=== PATIENT | female | born 1950 | race Caucasian/White ===

== ENCOUNTER 2017-10-08 12:34 | Observation (INO) | payer MEDICARE, OTHER ==
[2017-10-08] MEDS ORDERED: Sodium Chloride 0.9% 10 ML Syringe FLUSH PRN (12:52)
[2017-10-08] MEDS ORDERED: Ondansetron 4 MG/2 ML SDV IVPUSH ONE (12:55)
[2017-10-08] MEDS ORDERED: Lactated Ringers 1,000 ML IV SCH (13:00)
[2017-10-08 13:26] LABS: CHLORIDE,CL 90 mmol/L (98-107)
[2017-10-08 13:29] LABS: ANION GAP 10.2 mmol/L (10-20); SODIUM,NA 128 mmol/L (136-145)
[2017-10-08] MEDS ORDERED: Sodium Chloride 0.9% 1,000 ML IV SCH (13:30)
--- NOTE | 2017-10-08 13:52 | EDM.PDOC ---
ED HPI GENERAL MEDICAL PROBLEM - General Stated Complaint: NAUSEOUS Time Seen by Provider: 10/08/17 12:40 Source of Information: Reports: Patient History Limitations: Reports: No Limitations - History of Present Illness INITIAL COMMENTS - FREE TEXT/NARRATIVE: Pt. persents to ER with complaints of nausea and vomiting. Underwent total knee replacement on Wednesday and was discharged yesterday. She has not had a BM for 4 days. No fever or chills. No weakness. No chest pain or shortness of breath. States that the vomit is not fetid. Denies any abdominal pain. States that she feels "bloated". Location: Reports: Abdomen - Related Data Allergies Allergy/AdvReac Type Severity Reaction Status Date / Time colchicine Allergy Other Verified 10/08/17 15:49 Penicillins Allergy Rash Verified 10/08/17 15:45 CT dye Allergy Shortness Uncoded 10/08/17 15:45 of Breath Home Meds: Home Meds Acetaminophen [Tylenol Arthritis] 650 mg PO Q6H PRN 10/08/17 [History] Gabapentin [Neurontin] 600 mg PO BEDTIME 10/08/17 [History] Lactobacillus Acidophilus [Probiotic] 1 each PO BEDTIME 10/08/17 [History] Lisinopril/Hydrochlorothiazide [Lisinopril-Hctz 20-25 mg Tab] 1 each PO DAILY [History] Menthol [Biofreeze] 5 ml TP Q6H PRN 10/08/17 [History] Polyethylene Glycol 3350 [MiraLAX] 17 gm PO BID 10/08/17 [History] Rivaroxaban [Xarelto] 20 mg PO DAILY 10/08/17 [History] Sotalol HCl [Betapace] 120 mg PO BID 10/08/17 [History] amLODIPine Besylate [Norvasc] 5 mg PO DAILY 10/08/17 [History] traMADol HCl [Ultram] 50 mg PO 10/08/17 [History] ED ROS GENERAL - Review of Systems Review Of Systems: See Below Constitutional: Reports: No Symptoms HEENT: Reports: No Symptoms Respiratory: Reports: No Symptoms Cardiovascular: Reports: No Symptoms Endocrine: Reports: No Symptoms GI/Abdominal: Reports: Nausea, Vomiting : Reports: No Symptoms Musculoskeletal: Reports: No Symptoms Skin: Reports: No Symptoms Neurological: Reports: No Symptoms Psychiatric: Reports: No Symptoms Hematologic/Lymphatic: Reports: No Symptoms Immunologic: Reports: No Symptoms ED EXAM, GENERAL - Physical Exam Exam: See Below General Appearance: Alert, WD/WN, No Apparent Distress Throat/Mouth: Normal Inspection, Normal Lips, Normal Teeth, Normal Gums, Normal Oropharynx, Normal Voice, No Airway Compromise Respiratory/Chest: No Respiratory Distress, Lungs Clear, Normal Breath Sounds, No Accessory Muscle Use, Chest Non-Tender Cardiovascular: Normal Peripheral Pulses, Regular Rate, Rhythm, No Edema, No Gallop, No JVD, No Murmur, No Rub Peripheral Pulses: 3+: Radial (R) GI/Abdominal: No Organomegaly, No Distention, No Mass, Abnormal Bowel Sounds (Female) Exam: Deferred Rectal (Female) Exam: Deferred Back Exam: Normal Inspection, Full Range of Motion, NT Extremities: Normal Inspection, Normal Range of Motion, Non-Tender, Normal Capillary Refill, No Pedal Edema Neurological: Alert, Oriented, CN II-XII Intact, Normal Cognition, Normal Gait, Normal Reflexes, No Motor/Sensory Deficits Psychiatric: Normal Affect, Normal Mood Skin Exam: Warm, Dry, Intact, Normal Color, No Rash Course - Vital Signs Last Recorded V/S: Last Vital Signs Temp 36.9 C 10/08/17 15:20 Pulse 82 10/08/17 15:20 Resp 16 10/08/17 15:20 BP 117/83 10/08/17 15:20 Pulse Ox 97 10/08/17 15:20 - Orders/Labs/Meds Orders: Active Orders 24 hr Category Date Time Status Abdomen Pelvis wo Cont [CT] Stat Exams 10/08/17 14:00 Taken Abdomen Series w Chest 1V [CR] Stat Exams 10/08/17 12:52 Taken UA W/MICROSCOPIC [URIN] Stat Lab 10/08/17 12:54 Ordered Sodium Chloride 0.9% [Normal Saline] 1,000 ml Med 10/08/17 14:53 Active IV .BOLUS Sodium Chloride 0.9% [Normal Saline] 1,000 ml Med 10/08/17 13:30 Active IV ASDIRECTED Sodium Chloride 0.9% [Saline Flush] Med 10/08/17 12:52 Active 10 ml FLUSH ASDIRECTED PRN Peripheral IV Insertion Adult [OM.PC] Routine Oth 10/08/17 12:53 Ordered Medication Orders Sodium Chloride (Normal Saline) 1,000 mls @ 1,000 mls/hr IV ASDIRECTED CORINNA Last Admin: 10/08/17 13:40 Dose: 1,000 mls/hr Sodium Chloride (Normal Saline) 1,000 mls @ 100 mls/hr IV .BOLUS ONE Stop: 10/09/17 00:52 Potassium Chloride/Sodium Chloride (Normal Saline With 20 Meq Kcl) 1,000 mls @ 100 mls/hr IV ASDIRECTED CORINNA Sodium Chloride (Saline Flush) 10 ml FLUSH ASDIRECTED PRN PRN Reason: Keep Vein Open Labs: Laboratory Tests 10/08/17 10/08/17 10/08/17 Range/Units 12:58 12:58 12:58 WBC 16.5 H (4.0-10.0) x10^3/uL RBC 3.21 L (4.00-5.50) x10^6/uL Hgb 9.5 L (12.0-16.0) g/dL Hct 27.8 L (33.0-47.0) % MCV 86.6 (78.0-93.0) fL MCH 29.6 (26.0-32.0) pg MCHC 34.2 (32.0-36.0) g/dL RDW Coeff of Alyce 12.2 (10.0-15.0) % Plt Count 181 (130-400) x10^3/uL Neut % (Auto) 83.7 H (50.0-80.0) % Lymph % (Auto) 6.9 L (25.0-50.0) % [place] % (Auto) 8.8 (2.0-11.0) % Eos % (Auto) 0.5 (0.0-4.0) % Baso % (Auto) 0.1 L (0.2-1.2) % PT 10.9 (9.6-11.4) SEC INR 1.0 L (2.0-3.5) Sodium 128 L* (136-145) mmol/L Potassium 3.2 L (3.5-5.1) mmol/L Chloride 90 L (98-107) mmol/L Carbon Dioxide 31 (21-32) mmol/L Anion Gap 10.2 (10-20) mmol/L BUN 10 (7-18) mg/dL Creatinine 0.5 L (0.55-1.02) mg/dL Est Cr Clr Drug Dosing TNP Estimated GFR (MDRD) > 60 Glucose 118 H (74-106) mg/dL Calcium 8.5 (8.5-10.1) mg/dL Corrected Calcium 9.46 (8.5-10.1) mg/dL Total Bilirubin 1.4 H (0.2-1.0) mg/dL AST 16 (15-37) U/L ALT 19 (14-59) U/L Alkaline Phosphatase 74 (46-116) U/L C-Reactive Protein 32.9 H (<=0.9) mg/dL Total Protein 6.5 (6.4-8.2) g/dL Albumin 2.8 L (3.4-5.0) g/dL Globulin 3.7 Albumin/Globulin Ratio 0.76 Amylase 24 L (25-115) U/L Lipase 76 (73-393) U/L Meds: Medications Generic Name Dose Route Start Last Admin Trade Name Freq PRN Reason Stop Dose Admin Sodium Chloride 1,000 mls @ 1,000 mls/hr 10/08/17 13:30 10/08/17 13:40 Normal Saline IV 1,000 mls/hr ASDIRECTED CORINNA Administration Sodium Chloride 1,000 mls @ 100 mls/hr 10/08/17 14:53 Normal Saline IV 10/09/17 00:52 .BOLUS ONE Potassium Chloride/Sodium Chloride 1,000 mls @ 100 mls/hr 10/08/17 15:30 Normal Saline With 20 Meq Kcl IV ASDIRECTED CORINNA Sodium Chloride 10 ml 10/08/17 12:52 Saline Flush FLUSH ASDIRECTED PRN Keep Vein Open Discontinued Medications Generic Name Dose Route Start Last Admin Trade Name Freq PRN Reason Stop Dose Admin Lactated Ringer's 1,000 mls @ 500 mls/hr 10/08/17 13:00 10/08/17 12:40 Ringers, Lactated IV 500 mls/hr ASDIRECTED CORINAN Administration Iopamidol 100 ml 10/08/17 14:12 Isovue-300 (61%) IVPUSH 10/08/17 14:13 ONETIME ONE Ondansetron HCl 4 mg 10/08/17 12:55 10/08/17 12:55 Zofran IVPUSH 10/08/17 12:56 4 mg ONETIME ONE Administration - Radiology Interpretation Free Text/Narrative:: CT abdomen and pelvis was obtained without contrast. No obvious pathology noted. Plain film x-rays of abd. f/u obtained and showed scattered air in abd. consistent with ileus. Departure - Departure Time of Disposition: 16:05 Disposition: Refer to Observation Clinical Impression: Ileus, Hyponatremia - Discharge Information - Problem List Review Problem List Initiated/Reviewed/Updated: Yes - My Orders Last 24 Hours: My Active Orders 10/08/17 12:52 Abdomen Series w Chest 1V [CR] Stat Sodium Chloride 0.9% [Saline Flush] 10 ml FLUSH ASDIRECTED PRN 10/08/17 12:53 Peripheral IV Insertion Adult [OM.PC] Routine 10/08/17 12:54 UA W/MICROSCOPIC [URIN] Stat 10/08/17 13:30 Sodium Chloride 0.9% [Normal Saline] 1,000 ml IV ASDIRECTED 10/08/17 14:00 Abdomen Pelvis wo Cont [CT] Stat 10/08/17 14:53 Sodium Chloride 0.9% [Normal Saline] 1,000 ml IV .BOLUS - Assessment/Plan Last 24 Hours: My Active Orders 10/08/17 12:52 Abdomen Series w Chest 1V [CR] Stat Sodium Chloride 0.9% [Saline Flush] 10 ml FLUSH ASDIRECTED PRN 10/08/17 12:53 Peripheral IV Insertion Adult [OM.PC] Routine 10/08/17 12:54 UA W/MICROSCOPIC [URIN] Stat 10/08/17 13:30 Sodium Chloride 0.9% [Normal Saline] 1,000 ml IV ASDIRECTED 10/08/17 14:00 Abdomen Pelvis wo Cont [CT] Stat 10/08/17 14:53 Sodium Chloride 0.9% [Normal Saline] 1,000 ml IV .BOLUS Plan: admit observation. She was given 1 liter of NS in ER and 4 mg of zofran IV and states she felt much improved. Will admit and kept NPO. Reglan to help with nausea/peristalsis. IV NS with 20KCL at 100ml/hr. Reevaluate in AM. and anticipate discharge if continuing to improve.
[2017-10-08] MEDS ORDERED: Iopamidol 612 MG/ML 100 ML Bottle IVPUSH ONE (14:12)
[2017-10-08] MEDS ORDERED: Sodium Chloride 0.9% 1,000 ML IV ONE (14:53)
[2017-10-08] MEDS ORDERED: NS + KCl 20mEq/L 1,000 ML IV SCH (15:30)
[2017-10-08] MEDS: Metoclopramide 10 MG/2 ML SDV IVPUSH SCH ×2 (16:33→22:19)
[2017-10-08] MEDS: traMADol 50 MG Tab PO PRN (18:04)
[2017-10-08] MEDS ORDERED: Gabapentin 300 MG Cap PO SCH (20:00)
[2017-10-08] MEDS ORDERED: Lactobacillus Rhamnosus GG (Probiotic) Cap PO SCH (20:00)
[2017-10-08] MEDS: Sotalol 80 MG Tab PO SCH (21:10)
[2017-10-08] MEDS: Acetaminophen 650 MG Tab.ER PO PRN (21:14)
--- NOTE | 2017-10-09 00:59 | PCM.PN ---
- General Info Date of Service: 10/09/17 Admission Dx/Problem (Free Text): pt was admitted for observation of pain. Pt was just discharged from the hospital post left knee replacement. Pt states she did not have a bowel movement prior to discharge and was experiencing a moderate amount of pain. Her symptoms only progressed at home resulting in an emergency room visit for pain and bloating. X-rays and labs were completed. Results showed that the patient had an elevated white count it's unknown if this is related to surgical intervention or a new onset of a possible infection. Her x-ray also showed moderate amount of gas. He was admitted observation hydration and bowel rest. At approximately 2100 patient was allowed to try clear liquids/broth. Patient tolerated well without any complicated. She denies any fever, nauseated, bloating, or abdominal pain. Pt has been up ambulating in the [place] and feels her pain is under control with the current medication regiment. Functional Status: Reports: Pain Controlled, Urinating - Review of Systems General: Reports: No Symptoms HEENT: Reports: No Symptoms Pulmonary: Reports: No Symptoms Cardiovascular: Reports: No Symptoms Gastrointestinal: Reports: Abdominal Pain, Flatus Genitourinary: Reports: No Symptoms Musculoskeletal: Reports: No Symptoms Skin: Reports: Other (left knee pain ) Neurological: Reports: No Symptoms Psychiatric: Reports: No Symptoms - Patient Data Vitals - Most Recent: Last Vital Signs Temp 37.2 C 10/08/17 21:59 Pulse 87 10/08/17 21:59 Resp 19 10/08/17 21:59 BP 113/55 L 10/08/17 21:10 Pulse Ox 93 L 10/08/17 21:59 Weight - Most Recent: 97.522 kg I&O - Last 24 Hours: Intake & Output 10/08/17 10/08/17 10/09/17 14:59 22:59 06:59 Intake Total 2630 Output Total 2600 Balance 30 Lab Results Last 24 Hours: Laboratory Results - last 24 hr 10/08/17 10/08/17 10/08/17 Range/Units 12:58 12:58 12:58 WBC 16.5 H (4.0-10.0) x10^3/uL RBC 3.21 L (4.00-5.50) x10^6/uL Hgb 9.5 L (12.0-16.0) g/dL Hct 27.8 L (33.0-47.0) % MCV 86.6 (78.0-93.0) fL MCH 29.6 (26.0-32.0) pg MCHC 34.2 (32.0-36.0) g/dL RDW Coeff of Alyce 12.2 (10.0-15.0) % Plt Count 181 (130-400) x10^3/uL Neut % (Auto) 83.7 H (50.0-80.0) % Lymph % (Auto) 6.9 L (25.0-50.0) % [place] % (Auto) 8.8 (2.0-11.0) % Eos % (Auto) 0.5 (0.0-4.0) % Baso % (Auto) 0.1 L (0.2-1.2) % PT 10.9 (9.6-11.4) SEC INR 1.0 L (2.0-3.5) Sodium 128 L* (136-145) mmol/L Potassium 3.2 L (3.5-5.1) mmol/L Chloride 90 L (98-107) mmol/L Carbon Dioxide 31 (21-32) mmol/L Anion Gap 10.2 (10-20) mmol/L BUN 10 (7-18) mg/dL Creatinine 0.5 L (0.55-1.02) mg/dL Est Cr Clr Drug Dosing TNP Estimated GFR (MDRD) > 60 Glucose 118 H (74-106) mg/dL Calcium 8.5 (8.5-10.1) mg/dL Corrected Calcium 9.46 (8.5-10.1) mg/dL Total Bilirubin 1.4 H (0.2-1.0) mg/dL AST 16 (15-37) U/L ALT 19 (14-59) U/L Alkaline Phosphatase 74 (46-116) U/L C-Reactive Protein 32.9 H (<=0.9) mg/dL Total Protein 6.5 (6.4-8.2) g/dL Albumin 2.8 L (3.4-5.0) g/dL Globulin 3.7 Albumin/Globulin Ratio 0.76 Amylase 24 L (25-115) U/L Lipase 76 (73-393) U/L Urine Color (YELLOW) Urine Appearance (CLEAR) Urine pH (5.0-8.0) Ur Specific [place] Urine Protein (NEGATIVE) mg/dL Urine Glucose (UA) (NEGATIVE) mg/dL Urine Ketones (NEGATIVE) mg/dL Urine Occult Blood (NEGATIVE) Urine Nitrite (NEGATIVE) Urine Bilirubin (NEGATIVE) Urine Urobilinogen (0.2) EU/dL Ur Leukocyte Esterase (NEGATIVE) Urine RBC (NOT SEEN) /HPF Urine WBC (NOT SEEN) /HPF Ur Squamous Epith Cells (NEGATIVE) /HPF Urine Bacteria (NEGATIVE) /HPF Urine Mucus (NEGATIVE) /LPF 10/08/17 Range/Units 16:05 WBC (4.0-10.0) x10^3/uL RBC (4.00-5.50) x10^6/uL Hgb (12.0-16.0) g/dL Hct (33.0-47.0) % MCV (78.0-93.0) fL MCH (26.0-32.0) pg MCHC (32.0-36.0) g/dL RDW Coeff of Alyce (10.0-15.0) % Plt Count (130-400) x10^3/uL Neut % (Auto) (50.0-80.0) % Lymph % (Auto) (25.0-50.0) % [place] % (Auto) (2.0-11.0) % Eos % (Auto) (0.0-4.0) % Baso % (Auto) (0.2-1.2) % PT (9.6-11.4) SEC INR (2.0-3.5) Sodium (136-145) mmol/L Potassium (3.5-5.1) mmol/L Chloride (98-107) mmol/L Carbon Dioxide (21-32) mmol/L Anion Gap (10-20) mmol/L BUN (7-18) mg/dL Creatinine (0.55-1.02) mg/dL Est Cr Clr Drug Dosing Estimated GFR (MDRD) Glucose (74-106) mg/dL Calcium (8.5-10.1) mg/dL Corrected Calcium (8.5-10.1) mg/dL Total Bilirubin (0.2-1.0) mg/dL AST (15-37) U/L ALT (14-59) U/L Alkaline Phosphatase (46-116) U/L C-Reactive Protein (<=0.9) mg/dL Total Protein (6.4-8.2) g/dL Albumin (3.4-5.0) g/dL Globulin Albumin/Globulin Ratio Amylase (25-115) U/L Lipase (73-393) U/L Urine Color Yellow (YELLOW) Urine Appearance Clear (CLEAR) Urine pH 6.5 (5.0-8.0) Ur Specific [place] 1.010 Urine Protein Negative (NEGATIVE) mg/dL Urine Glucose (UA) Negative (NEGATIVE) mg/dL Urine Ketones Negative (NEGATIVE) mg/dL Urine Occult Blood Small H (NEGATIVE) Urine Nitrite Negative (NEGATIVE) Urine Bilirubin Negative (NEGATIVE) Urine Urobilinogen 0.2 (0.2) EU/dL Ur Leukocyte Esterase Trace H (NEGATIVE) Urine RBC 0-5 (NOT SEEN) /HPF Urine WBC 0-5 (NOT SEEN) /HPF Ur Squamous Epith Cells Rare (NEGATIVE) /HPF Urine Bacteria Not seen (NEGATIVE) /HPF Urine Mucus Not seen (NEGATIVE) /LPF Med Orders - Current: Current Medications Acetaminophen (Tylenol Arthritis Pain) 650 mg PO Q6H PRN PRN Reason: Pain Last Admin: 10/08/17 21:14 Dose: 650 mg Amlodipine Besylate (Norvasc) 5 mg PO DAILY [facility] Gabapentin (Neurontin) 600 mg PO BEDTIME [facility] Last Admin: 10/08/17 21:15 Dose: 600 mg Hydrochlorothiazide (Hydrochlorothiazide) 25 mg PO DAILY CORINNA Sodium Chloride (Normal Saline) 1,000 mls @ 1,000 mls/hr IV ASDIRECTED [facility] Last Admin: 10/08/17 13:40 Dose: 1,000 mls/hr Potassium Chloride/Sodium Chloride (Normal Saline With 20 Meq Kcl) 1,000 mls @ 100 mls/hr IV ASDIRECTED CORINNA Lactobacillus Rhamnosus (Culturelle) 1 cap PO BEDTIME [facility] Last Admin: 10/08/17 21:16 Dose: 1 cap Lisinopril (Prinivil) 20 mg PO DAILY [facility] Metoclopramide HCl (Reglan) 5 mg IVPUSH Q6H [facility] Last Admin: 10/08/17 22:19 Dose: 5 mg Rivaroxaban (Xarelto) 20 mg PO DAILY [facility] Sodium Chloride (Saline Flush) 10 ml FLUSH ASDIRECTED PRN PRN Reason: Keep Vein Open Sotalol HCl (Betapace) 120 mg PO BID CORINNA Last Admin: 10/08/17 21:10 Dose: 120 mg Tramadol HCl (Ultram) 50 - 100 mg PO Q6H PRN PRN Reason: Pain Last Admin: 10/08/17 18:04 Dose: 50 mg Discontinued Medications Lactated Ringer's (Ringers, Lactated) 1,000 mls @ 500 mls/hr IV ASDIRECTED CORINNA Last Admin: 10/08/17 12:40 Dose: 500 mls/hr Sodium Chloride (Normal Saline) 1,000 mls @ 100 mls/hr IV .BOLUS ONE Stop: 10/09/17 00:52 Last Admin: 10/08/17 15:00 Dose: 100 mls/hr Iopamidol (Isovue-300 (61%)) 100 ml IVPUSH ONETIME ONE Stop: 10/08/17 14:13 Ondansetron HCl (Zofran) 4 mg IVPUSH ONETIME ONE Stop: 10/08/17 12:56 Last Admin: 10/08/17 12:55 Dose: 4 mg - Exam Quality Assessment: DVT Prophylaxis General: Alert, Oriented HEENT: Pupils Equal, Pupils Reactive, EOMI, Mucous Membr. Moist/[place] Neck: Supple Lungs: Clear to Auscultation, Normal Respiratory Effort Cardiovascular: Regular Rate, Regular Rhythm GI/Abdominal Exam: Normal Bowel Sounds, Soft, Non-Tender, No Distention Back Exam: Normal Inspection, Full Range of Motion Extremities: Normal Inspection, Slow Capillary Refill, Leg Pain, Limited Range of Motion Peripheral Pulses: 1+: Dorsalis Pedis (L), 2+: Dorsalis Pedis (R) Skin: Warm, Dry, Intact Wound/Incisions: Healing Well, Dressing Dry and Intact, No Drainage Neurological: No New Focal Deficit Psy/Mental Status: Alert, Normal Affect, Normal Mood - Problem List Review Problem List Initiated/Reviewed/Updated: Yes - My Orders Last 24 Hours: My Active Orders 10/09/17 06:00 CBC WITH AUTO DIFF [HEME] Stat COMPREHENSIVE METABOLIC PN,CMP [CHEM] Stat - Assessment Assessment:: 1. abdominal pain 2. pain - Plan Plan:: 1. Continue to monitor pain and provided medications as needed 2. Encourage ambulation 3. Diet increased to clear liquids. If still feeling well in am will increase to full-bland diet 4. Will redraw labs in the am and monitor WBC trend. 5. Ice the lower extremity 4 times a day as needed for comfort
[2017-10-09] MEDS: traMADol 50 MG Tab PO PRN ×2 (01:12→07:25)
[2017-10-09] MEDS: Metoclopramide 10 MG/2 ML SDV IVPUSH SCH (04:36)
[2017-10-09] MEDS: Acetaminophen 650 MG Tab.ER PO PRN (05:16)
[2017-10-09] MEDS: Sotalol 80 MG Tab PO SCH (07:20)
[2017-10-09] MEDS ORDERED: Hydrochlorothiazide 25 MG Tab PO SCH (08:00)
[2017-10-09] MEDS ORDERED: Lisinopril 20 MG Tab PO SCH (08:00)
[2017-10-09] MEDS ORDERED: Rivaroxaban 10 MG Tab PO SCH (08:00)
[2017-10-09] MEDS ORDERED: amLODIPine 5 MG Tab PO SCH (08:00)
[2017-10-09 08:31] LABS: CHLORIDE,CL 97 mmol/L (98-107); SODIUM,NA 134 mmol/L (136-145)
[2017-10-09 08:34] LABS: ANION GAP 7.1 mmol/L (10-20)
--- NOTE | 2017-10-09 08:58 | PCM.DCSUM1 ---
Discharge Summary - Hospital Course HPI Initial Comments: abdominal pain left knee post surgical pain Brief History: pt was admitted for observation of pain. Pt was just discharged from the hospital post left knee replacement. Pt states she did not have a bowel movement prior to discharge and was experiencing a moderate amount of pain. Her symptoms only progressed at home resulting in an emergency room visit for pain and bloating. X-rays and labs were completed. Results showed that the patient had an elevated white count it's unknown if this is related to surgical intervention or a new onset of a possible infection. Her x-ray also showed moderate amount of gas. He was admitted observation hydration and bowel rest. At approximately 2100 patient was allowed to try clear liquids/broth. Patient tolerated well without any complicated. She denies any fever, nauseated, bloating, or abdominal pain. Pt has been up ambulating in the armendar[place] and feels her pain is under control with the current medication regiment. Pt was able to increase to full diet and has been tolerating without difficulty. Pt has had 3 bowel movements and denies any pain or bloating. Pt is requesting to go home. Diagnosis: Stroke: No Modified Keller Scale: No Symptoms at All Modified Didier Scale Score: 0 - Discharge Data Discharge Date: 10/09/17 Discharge Disposition: Home, Self-Care 01 Condition: Good - Discharge Diagnosis/Problem(s) (1) Pain SNOMED Code(s): 39143638 ICD Code: R52 - PAIN, UNSPECIFIED Status: Acute Current Visit: Yes (2) Abdominal pain SNOMED Code(s): 45178781 ICD Code: R10.9 - UNSPECIFIED ABDOMINAL PAIN Status: Acute Current Visit : Yes Onset Date: 10/08/17 Qualifiers: Abdominal location: generalized Qualified Code(s): R10.84 - Generalized abdominal pain - Patient Summary/Data Recommended Follow-up Testing/Procedures: 1. Please keep your post operative appointment as scheduled 2. Follow up sooner if symptoms return or progress - Patient Instructions Diet: Regular Diet as Tolerated Activity: Apply Ice, No Strenuous Activities Driving: Do Not Drive Showering/Bathing: May Shower Wound/Incision Care: Keep Operative Site/Wound Site Clean and Dry Notify Provider of: Fever, Increased Pain, Swelling and Redness, Drainage, Nausea and/or Vomiting - Discharge Plan *PRESCRIPTION DRUG MONITORING PROGRAM REVIEWED*: Not Applicable *COPY OF PRESCRIPTION DRUG MONITORING REPORT IN PATIENT AKI: Not Applicable Home Medications: Home Meds Acetaminophen [Tylenol Arthritis] 650 mg PO Q6H PRN MDD 400mg 10/08/17 [History] Gabapentin [Neurontin] 600 mg PO BEDTIME 10/08/17 [History] Lactobacillus Acidophilus [Probiotic] 1 cap PO BEDTIME 10/08/17 [History] Lisinopril/Hydrochlorothiazide [Lisinopril-Hctz 20-25 mg Tab] 1 tab PO DAILY [History] Menthol [Biofreeze] 5 ml TP Q6H PRN 10/08/17 [History] Polyethylene Glycol 3350 [MiraLAX] 17 gm PO BID 10/08/17 [History] Rivaroxaban [Xarelto] 20 mg PO DAILY 10/08/17 [History] amLODIPine Besylate [Norvasc] 5 mg PO DAILY 10/08/17 [History] traMADol HCl [Ultram] 50 - 100 mg PO Q6H PRN 10/08/17 [History] Metoclopramide [Reglan] 5 mg IVPUSH Q6H sdv 10/09/17 [Rx] Sotalol [Betapace] 120 mg PO BID tablet 10/09/17 [Rx] hydroCHLOROthiazide [Hydrochlorothiazide] 25 mg PO DAILY tablet 10/09/17 [Rx] Patient Handouts: Ileus, Heat Therapy - Discharge Summary/Plan Comment DC Time >30 min.: No Discharge Summary/Plan Comment: 1. Rest. 2. When sitting down please ensure rest 3. Use ice to help decrease swelling 4. Ensure getting up and ambulating to prevent 5. Can use a heating pad over the abdominal cavity to help with gas motility 6. Activity and diet as tolerated 7. Use the pain medications as indicated given by her orthopedic surgeon 8. Follow up as scheduled with the orthopedic surgeon postsurgical appointment 9. Concerns or complications arise please return to the emergency department or follow-up with her primary care provider sooner - General Info Date of Service: 10/09/17 Admission Dx/Problem (Free Text: pt was admitted for observation of pain. Pt was just discharged from the hospital post left knee replacement. Pt states she did not have a bowel movement prior to discharge and was experiencing a moderate amount of pain. Her symptoms only progressed at home resulting in an emergency room visit for pain and bloating. X-rays and labs were completed. Results showed that the patient had an elevated white count it's unknown if this is related to surgical intervention or a new onset of a possible infection. Her x-ray also showed moderate amount of gas. He was admitted observation hydration and bowel rest. At approximately 2100 patient was allowed to try clear liquids/broth. Patient tolerated well without any complicated. She denies any fever, nauseated, bloating, or abdominal pain. Pt has been up ambulating in the [place]endar[place] and feels her pain is under control with the current medication regiment. Functional Status: Reports: Pain Controlled, Tolerating Diet, Ambulating, Urinating, New Symptoms - Review of Systems General: Reports: No Symptoms HEENT: Reports: No Symptoms Pulmonary: Reports: No Symptoms Cardiovascular: Reports: No Symptoms Gastrointestinal: Reports: No Symptoms Genitourinary: Reports: No Symptoms Musculoskeletal: Reports: No Symptoms Skin: Reports: No Symptoms Neurological: Reports: No Symptoms Psychiatric: Reports: No Symptoms - Patient Data Vitals - Most Recent: Last Vital Signs Temp 37.9 C 10/09/17 05:30 Pulse 103 H 10/09/17 05:30 Resp 20 10/09/17 05:30 BP 121/56 L 10/09/17 07:23 Pulse Ox 90 L 10/09/17 05:30 Weight - Most Recent: 97.522 kg I&O - Last 24 hours: Intake & Output 10/08/17 10/09/17 10/09/17 22:59 06:59 14:59 Intake Total 2630 2815 300 Output Total 2600 1725 200 Balance 30 1090 100 Lab Results - Last 24 hrs: Laboratory Results - last 24 hr 10/08/17 10/08/17 10/08/17 Range/Units 12:58 12:58 12:58 WBC 16.5 H (4.0-10.0) x10^3/uL RBC 3.21 L (4.00-5.50) x10^6/uL Hgb 9.5 L (12.0-16.0) g/dL Hct 27.8 L (33.0-47.0) % MCV 86.6 (78.0-93.0) fL MCH 29.6 (26.0-32.0) pg MCHC 34.2 (32.0-36.0) g/dL RDW Coeff of Alyce 12.2 (10.0-15.0) % Plt Count 181 (130-400) x10^3/uL Neut % (Auto) 83.7 H (50.0-80.0) % Lymph % (Auto) 6.9 L (25.0-50.0) % Webb % (Auto) 8.8 (2.0-11.0) % Eos % (Auto) 0.5 (0.0-4.0) % Baso % (Auto) 0.1 L (0.2-1.2) % Add Manual Diff Neutrophils % (Manual) (50-80) % Band Neutrophils % (0-6) % Lymphocytes % (Manual) (25-50) % Eosinophils % (Manual) (0-4) % Metamyelocytes % (0) % Platelet Estimate PT 10.9 (9.6-11.4) SEC INR 1.0 L (2.0-3.5) Sodium 128 L* (136-145) mmol/L Potassium 3.2 L (3.5-5.1) mmol/L Chloride 90 L (98-107) mmol/L Carbon Dioxide 31 (21-32) mmol/L Anion Gap 10.2 (10-20) mmol/L BUN 10 (7-18) mg/dL Creatinine 0.5 L (0.55-1.02) mg/dL Est Cr Clr Drug Dosing TNP Estimated GFR (MDRD) > 60 Glucose 118 H (74-106) mg/dL Calcium 8.5 (8.5-10.1) mg/dL Corrected Calcium 9.46 (8.5-10.1) mg/dL Total Bilirubin 1.4 H (0.2-1.0) mg/dL AST 16 (15-37) U/L ALT 19 (14-59) U/L Alkaline Phosphatase 74 (46-116) U/L C-Reactive Protein 32.9 H (<=0.9) mg/dL Total Protein 6.5 (6.4-8.2) g/dL Albumin 2.8 L (3.4-5.0) g/dL Globulin 3.7 Albumin/Globulin Ratio 0.76 Amylase 24 L (25-115) U/L Lipase 76 (73-393) U/L Urine Color (YELLOW) Urine Appearance (CLEAR) Urine pH (5.0-8.0) Ur Specific Ranger Urine Protein (NEGATIVE) mg/dL Urine Glucose (UA) (NEGATIVE) mg/dL Urine Ketones (NEGATIVE) mg/dL Urine Occult Blood (NEGATIVE) Urine Nitrite (NEGATIVE) Urine Bilirubin (NEGATIVE) Urine Urobilinogen (0.2) EU/dL Ur Leukocyte Esterase (NEGATIVE) Urine RBC (NOT SEEN) /HPF Urine WBC (NOT SEEN) /HPF Ur Squamous Epith Cells (NEGATIVE) /HPF Urine Bacteria (NEGATIVE) /HPF Urine Mucus (NEGATIVE) /LPF 10/08/17 10/09/17 10/09/17 Range/Units 16:05 07:50 07:50 WBC 12.7 H (4.0-10.0) x10^3/uL RBC 2.91 L (4.00-5.50) x10^6/uL Hgb 8.6 L (12.0-16.0) g/dL Hct 26.3 L (33.0-47.0) % MCV 90.4 D (78.0-93.0) fL MCH 29.6 (26.0-32.0) pg MCHC 32.7 (32.0-36.0) g/dL RDW Coeff of Alyce 12.4 (10.0-15.0) % Plt Count 197 (130-400) x10^3/uL Neut % (Auto) (50.0-80.0) % Lymph % (Auto) (25.0-50.0) % Webb % (Auto) (2.0-11.0) % Eos % (Auto) (0.0-4.0) % Baso % (Auto) (0.2-1.2) % Add Manual Diff Yes Neutrophils % (Manual) 87 H (50-80) % Band Neutrophils % 1 (0-6) % Lymphocytes % (Manual) 9 L (25-50) % Eosinophils % (Manual) 2 (0-4) % Metamyelocytes % 1 H (0) % Platelet Estimate Adequate PT (9.6-11.4) SEC INR (2.0-3.5) Sodium 134 L (136-145) mmol/L Potassium 3.1 L (3.5-5.1) mmol/L Chloride 97 L (98-107) mmol/L Carbon Dioxide 33 H (21-32) mmol/L Anion Gap 7.1 L (10-20) mmol/L BUN 11 (7-18) mg/dL Creatinine 0.7 (0.55-1.02) mg/dL Est Cr Clr Drug Dosing 74.80 Estimated GFR (MDRD) > 60 Glucose 113 H (74-106) mg/dL Calcium 8.1 L (8.5-10.1) mg/dL Corrected Calcium 9.38 (8.5-10.1) mg/dL Total Bilirubin 1.2 H (0.2-1.0) mg/dL AST 15 (15-37) U/L ALT 16 (14-59) U/L Alkaline Phosphatase 65 (46-116) U/L C-Reactive Protein (<=0.9) mg/dL Total Protein 5.9 L (6.4-8.2) g/dL Albumin 2.4 L (3.4-5.0) g/dL Globulin 3.5 Albumin/Globulin Ratio 0.69 Amylase (25-115) U/L Lipase (73-393) U/L Urine Color Yellow (YELLOW) Urine Appearance Clear (CLEAR) Urine pH 6.5 (5.0-8.0) Ur Specific Ranger 1.010 Urine Protein Negative (NEGATIVE) mg/dL Urine Glucose (UA) Negative (NEGATIVE) mg/dL Urine Ketones Negative (NEGATIVE) mg/dL Urine Occult Blood Small H (NEGATIVE) Urine Nitrite Negative (NEGATIVE) Urine Bilirubin Negative (NEGATIVE) Urine Urobilinogen 0.2 (0.2) EU/dL Ur Leukocyte Esterase Trace H (NEGATIVE) Urine RBC 0-5 (NOT SEEN) /HPF Urine WBC 0-5 (NOT SEEN) /HPF Ur Squamous Epith Cells Rare (NEGATIVE) /HPF Urine Bacteria Not seen (NEGATIVE) /HPF Urine Mucus Not seen (NEGATIVE) /LPF Med Orders - Current: Current Medications Acetaminophen (Tylenol Arthritis Pain) 650 mg PO Q6H PRN PRN Reason: Pain Last Admin: 10/09/17 05:16 Dose: 650 mg Amlodipine Besylate (Norvasc) 5 mg PO DAILY CORINNA Last Admin: 10/09/17 07:22 Dose: 5 mg Gabapentin (Neurontin) 600 mg PO BEDTIME CORINNA Last Admin: 10/08/17 21:15 Dose: 600 mg Hydrochlorothiazide (Hydrochlorothiazide) 25 mg PO DAILY [facility] Last Admin: 10/09/17 07:23 Dose: 25 mg Sodium Chloride (Normal Saline) 1,000 mls @ 1,000 mls/hr IV ASDIRECTED [facility] Last Admin: 10/08/17 13:40 Dose: 1,000 mls/hr Potassium Chloride/Sodium Chloride (Normal Saline With 20 Meq Kcl) 1,000 mls @ 100 mls/hr IV ASDIRECTED [facility] Last Admin: 10/09/17 01:07 Dose: 100 mls/hr Lactobacillus Rhamnosus (Culturelle) 1 cap PO BEDTIME [facility] Last Admin: 10/08/17 21:16 Dose: 1 cap Lisinopril (Prinivil) 20 mg PO DAILY [facility] Last Admin: 10/09/17 07:23 Dose: 20 mg Metoclopramide HCl (Reglan) 5 mg IVPUSH Q6H [facility] Last Admin: 10/09/17 04:36 Dose: 5 mg Rivaroxaban (Xarelto) 20 mg PO DAILY [facility] Last Admin: 10/09/17 07:23 Dose: 20 mg Sodium Chloride (Saline Flush) 10 ml FLUSH ASDIRECTED PRN PRN Reason: Keep Vein Open Last Admin: 10/09/17 04:37 Dose: 10 ml Sotalol HCl (Betapace) 120 mg PO BID [facility] Last Admin: 10/09/17 07:20 Dose: 120 mg Tramadol HCl (Ultram) 50 - 100 mg PO Q6H PRN PRN Reason: Pain Last Admin: 10/09/17 07:25 Dose: 50 mg Discontinued Medications Lactated Ringer's (Ringers, Lactated) 1,000 mls @ 500 mls/hr IV ASDIRECTED [facility] Last Admin: 10/08/17 12:40 Dose: 500 mls/hr Sodium Chloride (Normal Saline) 1,000 mls @ 100 mls/hr IV .BOLUS ONE Stop: 10/09/17 00:52 Last Admin: 10/08/17 15:00 Dose: 100 mls/hr Iopamidol (Isovue-300 (61%)) 100 ml IVPUSH ONETIME ONE Stop: 10/08/17 14:13 Ondansetron HCl (Zofran) 4 mg IVPUSH ONETIME ONE Stop: 10/08/17 12:56 Last Admin: 10/08/17 12:55 Dose: 4 mg - Exam General: Reports: Alert, Oriented HEENT: Reports: Pupils Equal, Pupils Reactive, EOMI, Mucous Membr. Moist/[place] Neck: Reports: Supple Lungs: Reports: Clear to Auscultation, Normal Respiratory Effort Cardiovascular: Reports: Regular Rate, Regular Rhythm GI/Abdominal Exam: Normal Bowel Sounds, Soft, Non-Tender, No Distention Back Exam: Reports: Normal Inspection, Full Range of Motion Extremities: Normal Inspection, Normal Range of Motion, Non-Tender, No Pedal Edema, Normal Capillary Refill Skin: Reports: Warm, Dry, Intact Wound/Incisions: Reports: Healing Well Neurological: Reports: No New Focal Deficit Psy/Mental Status: Reports: Alert, Normal Affect, Normal Mood *Q Meaningful Use (DIS) - VTE *Q VTE Mechanical Contraindications *Q: At Risk for Falls
== END 2017-10-09 09:30 | disposition home or self-care (01) ==
LOC: VM.ED 12:34 → VM.MS 15:06
PROVIDERS: ADMIT Physician Assistant; ATTEND Physician Assistant
DX: R10.9 Unspecified abdominal pain (principal); M25.562 Pain in left knee; Z79.899 Other long term (current) drug therapy; Z88.0 Allergy status to penicillin; Z88.8 Allergy status to other drugs, medicaments and biological substances; Z91.041 Radiographic dye allergy status
CPT/HCPCS: 36415; 74022; 74176; 80053; 81001; 82150; 83690; 85025; 85610; 86140; 96361; 96374; 96375; 96376; 99285; A9270; G0378; J2405; J2765; J3480; J7030; J7050; J7120; Q9967

== ENCOUNTER 2020-06-22 12:48 | Emergency (ER) | payer MEDICARE, OTHER ==
[2020-06-22] MEDS ORDERED: Take Home: Cephalexin 500 MG Cap, 4 Cap Pack PO ONE (13:05)
--- NOTE | 2020-06-22 13:15 | EDM.PDOC ---
ED HPI GENERAL MEDICAL PROBLEM - General Chief Complaint: Skin Complaint Stated Complaint: right elbow redness Time Seen by Provider: 06/22/20 12:58 Source of Information: Reports: Patient History Limitations: Reports: No Limitations - History of Present Illness INITIAL COMMENTS - FREE TEXT/NARRATIVE: Patient presents with complaints of right elbow swelling, warmth, and pain. Was picking at her skin several days ago and noticed when setting her arm down yesterday that the above symptoms were present. These have only worsened today. No OTC taken [employer]. No history of gout, no fever, chills, nausea, vomiting, diarrhea. Full ROM to arm, no change in her neurovascular status. Onset Date: 06/21/20 Duration: Getting Worse Location: Reports: Upper Extremity, Right Severity: Moderate Worsens with: Reports: Movement Associated Symptoms: Reports: No Other Symptoms Right Elbow Pain Score (Numeric/FACES): 4 - Related Data Allergies Allergy/AdvReac Type Severity Reaction Status Date / Time colchicine Allergy Unknown Itching Verified 06/22/20 13:10 Penicillins Allergy Unknown Rash Verified 06/22/20 13:10 CT dye Allergy Unknown Hives Uncoded 06/22/20 13:10 Home Meds: Home Meds Acetaminophen [Tylenol Arthritis] 650 mg PO Q6H PRN MDD 400mg 10/08/17 [History] Gabapentin [Neurontin] 600 mg PO BEDTIME 10/08/17 [History] Lactobacillus Acidophilus [Probiotic] 1 cap PO BEDTIME 10/08/17 [History] Lisinopril/Hydrochlorothiazide [Lisinopril-Hctz 20-25 mg Tab] 1 tab PO DAILY 10/08/17 [History] Menthol [Biofreeze] 5 ml TP Q6H PRN 10/08/17 [History] Rivaroxaban [Xarelto] 20 mg PO DAILY 10/08/17 [History] amLODIPine Besylate [Norvasc] 5 mg PO DAILY 10/08/17 [History] polyethylene glycoL 3350 [MiraLAX] 17 gm PO DAILY 10/08/17 [History] Sotalol [Betapace] 120 mg PO BID tablet 10/09/17 [Rx] LORazepam [Ativan] 0.5 mg PO BID 06/22/20 [History] Past Medical History Cardiovascular History: Reports: Afib, Hypertension, Pacemaker Musculoskeletal History: Reports: Osteoarthritis - Past Surgical History Cardiovascular Surgical History: Reports: Pacer Musculoskeletal Surgical History: Reports: Knee Replacement Social & Family History - Caffeine Use Caffeine Use: Reports: None ED ROS GENERAL - Review of Systems Review Of Systems: See Below Constitutional: Reports: No Symptoms HEENT: Reports: No Symptoms Respiratory: Reports: No Symptoms Cardiovascular: Reports: No Symptoms Endocrine: Reports: No Symptoms GI/Abdominal: Reports: No Symptoms : Reports: No Symptoms Musculoskeletal: Reports: No Symptoms Skin: Reports: Erythema, Wound, Other (edema of right elbow) Neurological: Reports: No Symptoms Psychiatric: Reports: No Symptoms Hematologic/Lymphatic: Reports: No Symptoms Immunologic: Reports: No Symptoms ED EXAM, SKIN/RASH Exam: See Below Exam Limited By: No Limitations General Appearance: Alert, WD/WN, No Apparent Distress Ears: Normal External Exam, Normal Canal, Hearing Grossly Normal, Normal TMs Nose: Normal Inspection, Normal Mucosa, No Blood Throat/Mouth: Normal Inspection, Normal Lips, Normal Teeth, Normal Gums, Normal Oropharynx, Normal Voice, No Airway Compromise Head: Atraumatic, Normocephalic Neck: Normal Inspection, Supple, Non-Tender, Full Range of Motion Respiratory/Chest: No Respiratory Distress, Lungs Clear, Normal Breath Sounds, No Accessory Muscle Use, Chest Non-Tender Cardiovascular: Normal Peripheral Pulses, Regular Rate, Rhythm, No Edema, No Gallop, No JVD, No Murmur, No Rub GI/Abdominal: Soft Extremities: Normal Inspection, Normal Range of Motion, Non-Tender, No Pedal Edema, Normal Capillary Refill Neurological: Alert, Oriented, CN II-XII Intact, Normal Cognition, Normal Gait, Normal Reflexes, No Motor/Sensory Deficits Psychiatric: Normal Affect, Normal Mood Skin: Warm, Dry, Erythema, Increased Warmth, Other (edema) Location, Skin: Upper Extremity, Right (right elbow, lateral aspect) Characteristics: Erythematous Associated features: Warmth, Tenderness, Inflammation Lymphatic: No Adenopathy Course - Vital Signs Last Recorded V/S: Last Vital Signs Temp 36.9 C 06/22/20 12:48 Pulse 71 06/22/20 12:48 Resp 16 06/22/20 12:48 BP 163/62 H 06/22/20 12:48 Pulse Ox 97 06/22/20 12:48 - Orders/Labs/Meds Meds: Medications Discontinued Medications Generic Name Dose Route Start Last Admin Trade Name Freq PRN Reason Stop Dose Admin Cephalexin 2 packet 06/22/20 13:05 06/22/20 13:19 Take Home: Cephalexin 500 Mg Cap, 4 Cap Pack PO 06/22/20 13:06 2 packet ONETIME ONE Administration Departure - Departure Time of Disposition: 13:25 Disposition: Home, Self-Care 01 Condition: Good Clinical Impression: Cellulitis - Discharge Information *PRESCRIPTION DRUG MONITORING PROGRAM REVIEWED*: Not Applicable *COPY OF PRESCRIPTION DRUG MONITORING REPORT IN PATIENT AKI: Not Applicable Instructions: Cellulitis, Adult Referrals: PCP,Not In Area [Primary Care Provider] - Forms: ED Department Discharge Additional Instructions: 1. Follow up with PCP next week if symptoms have not improved. 2. Make sure to start a probiotic while on the antibiotics to decrease your chance of antibiotic related side effects and adverse effects such as C. Diff. diarrhea. 3. Stay well hydrated. 4. Discontinue antibiotics if you develop a rash, swelling of the face or neck, or difficulty breathing. Sepsis Event Note (ED) - Focused Exam Vital Signs: Vital Signs Temp Pulse Resp BP Pulse Ox 06/22/20 12:48 36.9 C 71 16 163/62 H 97 - Problem List & Annotations (1) Cellulitis SNOMED Code(s): 480650857 Code(s): L03.90 - CELLULITIS, UNSPECIFIED Status: Acute Qualifiers: Site of cellulitis: extremity Site of cellulitis of extremity: upper extremity Laterality: right Qualified Code(s): L03.113 - Cellulitis of right upper limb - Problem List Review Problem List Initiated/Reviewed/Updated: Yes - Assessment/Plan Assessment:: Right elbow cellulitis Plan: 1. Follow up with PCP next week if symptoms have not improved. 2. Make sure to start a probiotic while on the antibiotics to decrease your chance of antibiotic related side effects and adverse effects such as C. Diff. diarrhea. 3. Stay well hydrated. 4. Discontinue antibiotics if you develop a rash, swelling of the face or neck, or difficulty breathing.
== END 2020-06-22 13:25 | disposition home or self-care (01) ==
LOC: VM.ED 12:48
DX: L03.113 Cellulitis of right upper limb (principal); I48.91 Unspecified atrial fibrillation; I10 Essential (primary) hypertension; Z79.01 Long term (current) use of anticoagulants; Z79.899 Other long term (current) drug therapy; Z88.8 Allergy status to other drugs, medicaments and biological substances; Z88.0 Allergy status to penicillin; Z91.041 Radiographic dye allergy status
CPT/HCPCS: 99283; A9270

== ENCOUNTER 2023-12-21 18:49 | Emergency (ER) | payer MEDICARE, OTHER ==
[2023-12-21] MEDS: Zolpidem 5 MG Tab PO ONE (19:49)
== END 2023-12-21 19:54 | disposition home or self-care (01) ==
LOC: VM.ED 18:49
DX: G47.9 Sleep disorder, unspecified (principal); I10 Essential (primary) hypertension; I48.91 Unspecified atrial fibrillation; E66.9 Obesity, unspecified; Z95.0 Presence of cardiac pacemaker; Z90.49 Acquired absence of other specified parts of digestive tract; Z90.710 Acquired absence of both cervix and uterus; Z79.01 Long term (current) use of anticoagulants; Z79.899 Other long term (current) drug therapy; Z88.0 Allergy status to penicillin; Z91.041 Radiographic dye allergy status; Z88.8 Allergy status to other drugs, medicaments and biological substances
CPT/HCPCS: 99283; 99284; A9270